=== PATIENT | female | born 1965 | race Caucasian/White ===

== ENCOUNTER → 2017-05-09 | Outpatient (CLI) | payer OTHER ==
[2017-05-12 12:30] LABS: HPV Genotype 16 Not Detected (NOTDET); HPV Genotype 18 Not Detected (NOTDET)
[2017-05-24 14:13] LABS: HPV High Risk Other Not Detected (NOTDET)
== END | disposition home or self-care (01) ==
LOC: LAB 16:16
PROVIDERS: Obstetrics & Gynecology
DX: Z12.4 Encounter for screening for malignant neoplasm of cervix (principal)
CPT/HCPCS: 87624; G0123

== ENCOUNTER 2018-11-28 07:07 | Day surgery (SDC) | payer OTHER ==
[~2018-11-28] VITALS: Ht 175.3 cm; Wt 98.0 kg
[~2018-11-28 07:07] MED LIST: CAMRESE LO TAB1 EAC1 PO; Lexapro 10 mg T10 MG PO; META800; OMEPRAZOLE20 MG PO; ONE-DAILY MULT1 EAC1 PO; Oyster Shell C500 MG PO
--- NOTE | 2018-11-28 07:57 | NUR ---
11/28/18 0757 Camila Jean 1 POKE RIGHT WRIST VEIN MOVED 2 POKE LEFT WRIST VEIN MOVED 3 POKE RIGHT HAND GOOD NO PAIN
== END 2018-11-28 09:44 | disposition home or self-care (01) ==
LOC: ORSCSDS 07:07
DX: K21.0 Gastro-esophageal reflux disease with esophagitis (principal); K44.9 Diaphragmatic hernia without obstruction or gangrene; Z12.11 Encounter for screening for malignant neoplasm of colon; D12.2 Benign neoplasm of ascending colon; D12.5 Benign neoplasm of sigmoid colon; K64.8 Other hemorrhoids; R13.10 Dysphagia, unspecified; E78.5 Hyperlipidemia, unspecified; R73.9 Hyperglycemia, unspecified; Z79.899 Other long term (current) drug therapy
CPT/HCPCS: 88305; 88342; J0330; J0461; J2405; J2704; J7120

== ENCOUNTER → 2022-09-11 | Outpatient (CLI) | payer OTHER ==
[2022-09-11 15:18] LABS: BASOPHILS ABSOLUTE AUTO 0.04 K/mm3 (0.00-0.23); BASOPHILS PERCENT AUTO 1 % (0-2); EOSINOPHILS ABSOLUTE AUTO 0.16 K/mm3 (0.00-0.68); EOSINOPHILS PERCENT AUTO 2 % (0-6); Hematocrit 44.2 % (33.0-51.0); Hemoglobin 15.3 g/dL (11.5-16.0); IMMATURE GRAN ABSOLUTE AUTO 0.03 K/mm3 (0.00-0.10); IMMATURE GRAN PERCENT AUTO 0 % (0-1); LYMPHOCYTES ABSOLUTE AUTO 1.95 K/mm3 (0.84-5.20); LYMPHOCYTES PERCENT AUTO 24 % (21-46); MONOCYTES ABSOLUTE AUTO 0.63 K/mm3 (0.16-1.47); MONOCYTES PERCENT AUTO 8 % (4-13); Mean Corpuscular HGB 31.6 pg (26.0-34.0); Mean Corpuscular HGB Conc 34.6 g/dL (31.5-36.5); Mean Corpuscular Volume 91 fL (80-100); NEUTROPHILS ABSOLUTE AUTO 5.49 K/mm3 (1.96-9.15); NEUTROPHILS PERCENT AUTO 66 % (41-73); Platelet Count 346 K/mm3 (150-400); RDW Coefficient Variation 12.5 % (11.7-14.2); RDW Standard Deviation 41.5 fL (35.1-46.3); Red Blood Cell Count 4.84 M/mm3 (3.80-5.20)
[2022-09-11 15:28] LABS: Albumin, Blood 3.9 g/dL (3.4-5.0); Albumin/Globulin Ratio 1.1 (0.8-1.8); Bilirubin, Total 0.6 mg/dL (0.1-1.0); Bun/Creatinine Ratio 21.4 (12.0-20.0); Calcium, Blood 9.1 mg/dL (8.5-10.1); Creatinine, Blood 0.84 mg/dL (0.40-1.00); Globulin, Blood 3.6 g/dL (2.2-4.0); Potassium, Blood 4.2 mmol/L (3.5-5.5); Total Protein, Blood 7.5 g/dL (6.4-8.2)
== END | disposition home or self-care (01) ==
LOC: LAB SHORT 15:14 → LAB 15:14
PROVIDERS: Emergency Medicine
DX: R10.9 Unspecified abdominal pain (principal)
CPT/HCPCS: 80053; 83690; 85025

== ENCOUNTER 2022-09-21 10:06 | Emergency (ER) | payer OTHER ==
[~2022-09-21] VITALS: Ht 175.3 cm; Wt 97.5 kg
[2022-09-21 11:07] LABS: BASOPHILS ABSOLUTE AUTO 0.04 K/mm3 (0.00-0.23); BASOPHILS PERCENT AUTO 1 % (0-2); EOSINOPHILS ABSOLUTE AUTO 0.15 K/mm3 (0.00-0.68); EOSINOPHILS PERCENT AUTO 2 % (0-6); Hematocrit 44.2 % (33.0-51.0); IMMATURE GRAN ABSOLUTE AUTO 0.02 K/mm3 (0.00-0.10); IMMATURE GRAN PERCENT AUTO 0 % (0-1); LYMPHOCYTES ABSOLUTE AUTO 1.51 K/mm3 (0.84-5.20); LYMPHOCYTES PERCENT AUTO 21 % (21-46); MONOCYTES ABSOLUTE AUTO 0.53 K/mm3 (0.16-1.47); MONOCYTES PERCENT AUTO 8 % (4-13); Mean Corpuscular HGB Conc 33.9 g/dL (31.5-36.5); Mean Corpuscular Volume 91 fL (80-100); NEUTROPHILS ABSOLUTE AUTO 4.82 K/mm3 (1.96-9.15); NEUTROPHILS PERCENT AUTO 68 % (41-73); Platelet Count 379 K/mm3 (150-400); RDW Coefficient Variation 12.4 % (11.7-14.2); RDW Standard Deviation 41.3 fL (35.1-46.3); Red Blood Cell Count 4.84 M/mm3 (3.80-5.20); White Blood Cell Count 7.07 K/mm3 (4.00-11.30)
[2022-09-21 11:18] LABS: Albumin, Blood 3.6 g/dL (3.4-5.0); Albumin/Globulin Ratio 1.1 (0.8-1.8); Bilirubin, Total 0.7 mg/dL (0.1-1.0); Bun/Creatinine Ratio 29.2 (12.0-20.0); Calcium, Blood 8.8 mg/dL (8.5-10.1); Creatinine, Blood 0.69 mg/dL (0.40-1.00); Globulin, Blood 3.3 g/dL (2.2-4.0); Potassium, Blood 3.9 mmol/L (3.5-5.5); Total Protein, Blood 6.9 g/dL (6.4-8.2)
[2022-09-21 13:18] LABS: International Normalized Ratio 1.03; Prothrombin Time Results 10.8 Sec (9.7-11.5)
[2022-09-21 14:42] LABS: International Normalized Ratio 1.04; Prothrombin Time Results 10.9 Sec (9.7-11.5)
[2022-09-21 15:35] VITALS: BP 130/79
[2022-09-21 15:50] LABS: Automated BF RBC Count 0.002 M/mm3 (0-0); Automated BF WBC Count 0.719 K/mm3 (0-999)
[2022-09-21 15:53] LABS: Body Fluid WBC Count 719 /mm3 (0-999); RBC Count, Body Fluid 2000 /mm3 (0-0)
[2022-09-21 16:10] LABS: Glucose, Body Fluid 110 mg/dL; Protein, Body Fluid 4.6 g/dL
[2022-09-21 16:17] LABS: Lactate Dehydrogenase, Body Fl 182 U/L
[2022-09-21 16:55] LABS: Appearance, Body Fluid Clear (Clear); Color, Body Fluid Yellow (None-Yellow); Total Cell Count, Body Fluid 100
== END 2022-09-21 15:42 | disposition home or self-care (01) ==
LOC: ER 10:06
PROVIDERS: Student in an Organized Health Care Education/Training Program
DX: J90 Pleural effusion, not elsewhere classified (principal); Z79.899 Other long term (current) drug therapy; Z85.43 Personal history of malignant neoplasm of ovary
CPT/HCPCS: 32555; 71045; 71046; 71260; 80053; 82945; 83615; 83880; 84145; 84157; 85025; 85610; 85730; 87070; 87205; 89051; 93005; 93010; 99284-25; Q9967

== ENCOUNTER 2023-06-30 10:11 | Day surgery (SDC) | payer OTHER ==
[~2023-06-30] VITALS: Ht 177.8 cm; Wt 94.2 kg
[~2023-06-30 10:11] MED LIST changes: +Lidocaine 1%-Epineph 1:100000 20 ML MDV ONE; +Ropivacaine 0.5% HCl/Pf 5 MG/ML 20ML VIAL ONE
[2023-06-30] MEDS ORDERED: CeFAZolin Sodium 2,000 MG VIAL ONE (10:25)
[2023-06-30] MEDS ORDERED: NS 50 ML IV ONE (10:25)
[2023-06-30] MEDS ORDERED: Lactated Ringer's 1,000 ML IV ONE (10:44)
[2023-06-30] MEDS ORDERED: propofoL 40 ML IV ONE (11:49)
[2023-06-30] MEDS ORDERED: Ketorolac Tromethamine 30mg Vial ONE (12:07)
[2023-06-30 12:50] VITALS: BP 159/78
== END 2023-06-30 13:40 | disposition home or self-care (01) ==
LOC: ORSCSDS 10:11
PROVIDERS: Orthopaedic Surgery
PROC: 01N50ZZ Release Median Nerve, Open Approach (ICD-10-PCS; principal; 2023-06-30 11:30)
DX: G56.01 Carpal tunnel syndrome, right upper limb (principal); Z47.89 Encounter for other orthopedic aftercare; K21.9 Gastro-esophageal reflux disease without esophagitis; F41.9 Anxiety disorder, unspecified; F32.A Depression, unspecified; Z79.899 Other long term (current) drug therapy
CPT/HCPCS: J0690; J1885; J2704; J2795

== ENCOUNTER 2024-04-23 09:22 | Day surgery (SDC) | payer OTHER ==
[~2024-04-23] VITALS: Ht 175.3 cm; Wt 93.9 kg
[~2024-04-23 09:22] MED LIST changes: -Lidocaine 1%-Epineph 1:100000 20 ML MDV ONE; +Lidocaine 1%-Epineph 1:200000 30 ML SDV ONE; +NS 500 ML IV ONE; -Ropivacaine 0.5% HCl/Pf 5 MG/ML 20ML VIAL ONE
[2024-04-23] MEDS ORDERED: ROSUVASTATIN CAL5 MG PO (10:27)
[2024-04-23] MEDS ORDERED: NS 500 ML IV ONE (10:35)
--- NOTE | 2024-04-23 11:00 | NUR ---
04/23/24 1100 Jonelle Woods TIME OUT PERFORMED AT BEDSIDE WITH DR CR AT [address] CR INJECTING 5ML OF SOLUTION OF 9ML 1% LIDOCAINE W/EPI [id number] AND 1ML 8.4% SODIUM BICARBONATE. PATIENT TOLERATED PROCEDURE WITHOUT ANY DIFFICULTIES.
[2024-04-23] MEDS ORDERED: propofoL 20 ML IV ONE ×2 (11:16→11:17)
--- NOTE | 2024-04-23 12:00 | NUR ---
04/23/24 1200 Lucila Judd PT ARRIVES TO SDU ON RA, VSS. BP HYPOTENSIVE, ANS AWARE. FLUIDS OPENED. PT ROUSES TO VOICE. DENIES PAIN/NAUSEA. NO VISIBLE SIGNS OF DISTRESS NOTED.
[2024-04-23 12:01] VITALS: BP 98/64
== END 2024-04-23 12:38 | disposition home or self-care (01) ==
LOC: ORSCSDS 09:22
PROVIDERS: Orthopaedic Surgery
PROC: 0LN70ZZ Release Right Hand Tendon, Open Approach (ICD-10-PCS; principal; 2024-04-23 11:15)
DX: M65.311 Trigger thumb, right thumb (principal); E66.9 Obesity, unspecified; Z68.30 Body mass index [BMI] 30.0-30.9, adult
CPT/HCPCS: J2704; J7040